=== PATIENT | female | born 1990 | race Caucasian/White ===

== ENCOUNTER → 2020-12-31 | Day surgery (SDC) | payer OTHER ==
[~2020-12-31] MED LIST: IV RINGERS,LACTATED 1000ML 1,000 ML IV ONE; LIDOCAINE 2% PF 5 ML VIAL. ONE; PROPOFOL 10 MG/ML (20ML) VIAL. IV ONE
[2020-12-31 08:45] VITALS: BP 121/68
--- NOTE | 2021-01-02 14:09 | PATHOLOGY ---
[facility] Accession Number: [id number] . 01 Material submitted: . rectum - RECTAL POLYP BIOPSY . 01 Clinical history: . EGD COLONOSCOPY . 02 Diagnosis: Colorectal biopsies, rectal polyps: - Hyperplastic polyps. . ([facility]:mm; 01/02/2021) [facility] 01/02/2021 1201 Local . 02 Comment: There are no adenomatous changes or evidence of malignancy. . ([facility]:mml; 01/02/2021) . 02 Electronically signed: . Marty Goldman MD, Pathologist NPI- [id number] . 01 Gross description: . Received in formalin labeled "Marc, Lucia and Rectal polyp biopsy". Received are 2 smallwood-castro soft tissue fragments ranging from 0.2-0.4 cm. Specimen is entirely submitted in cassette A1.([facility]; 01/01/2021) . J/[facility] 01/01/2021 1602 Local . 02 Pathologist provided ICD-10: K62.1 . 02 CPT . 717081 Specimen Comment: A courtesy copy of this report has been sent to [phone] Specimen Comment: [id number] Specimen Comment: Report sent to / DR CRONIN Performed at: 01 [facility] [address], [place] [id number] MD Magen Reina MD Phone: [phone] Performed at: 02 [facility] [address] [place], [place] [id number] MD Marty Goldman MD Phone: [phone]
== END | disposition home or self-care (01) ==
LOC: ENDOS 06:49
PROVIDERS: ATTEND Internal Medicine Gastroenterology
DX: K92.1 Melena (principal); K29.50 Unspecified chronic gastritis without bleeding; R11.2 Nausea with vomiting, unspecified; R19.4 Change in bowel habit; K64.0 First degree hemorrhoids; K63.89 Other specified diseases of intestine; K62.1 Rectal polyp; Z20.822 Contact with and (suspected) exposure to COVID-19; Z87.891 Personal history of nicotine dependence; Z79.899 Other long term (current) drug therapy; Z98.890 Other specified postprocedural states; Z72.89 Other problems related to lifestyle
CPT/HCPCS: 43235; 45380; 81025; 87426; 88305; J2704

== ENCOUNTER → 2021-01-21 | Outpatient (CLI) | payer OTHER ==
[2020-12-31 08:45] VITALS: BP 121/68
[~2021-01-21] VITALS: Ht 160 cm; Wt 84.4 kg
[~2021-01-21] MED LIST changes: -IV RINGERS,LACTATED 1000ML 1,000 ML IV ONE; -LIDOCAINE 2% PF 5 ML VIAL. ONE; -PROPOFOL 10 MG/ML (20ML) VIAL. IV ONE; +SINCALIDE 1.69 MCG in IV NORMAL SALINE 50ML 30 ML IV ONE
--- NOTE | 2021-01-21 14:39 | RAD ---
HEPATOBILIARY SCAN WITH EJECTION FRACTION History: Reason: BLOATING, VOMITING, LOWER ABDOMEN PAIN FOR 6 MONTHS / Spl. Instructions: / History: COMPARISON: Limited abdominal ultrasound, same day. Procedure: Serial static images are obtained of the liver and biliary system in the frontal projectio n following IV administration of 5.5 mCi of Technetium 99m Choletec. After filling of the gallbladd er, 1.7 mcg of sincalide were infused over 30 minutes and dynamic imaging continued over this period. The gallbladder ejection fraction was calculated. Findings: There is prompt hepatic clearance of tracer from the blood pool. There is homogeneous distribution th roughout the liver. There is normal filling of the gallbladder and normal emptying into the biliary s ystem and small bowel. The gallbladder ejection fraction measures 72% (normal gallbladder EF is 35% o r greater). IMPRESSION: 1. The cystic duct and common bile duct are patent. Negative for acute cholecystitis. 2. The gallbladder ejection fraction is normal. Electronically signed by: Sukhi Acuña MD (01/21/2021 2:37 PM) [id number]
--- NOTE | 2021-01-21 15:05 | RAD ---
Examination: Ultrasound abdomen limited HISTORY: History of abdominal pain, nausea, vomiting COMPARISON: None available. FINDINGS: The liver length measures 16 cm. No evidence of gallstones. The common bile duct measures 3 mm in tra nsverse dimension.The right kidney measures 12.2 x 6.1 x 4.2 cm. The pancreas is not well-visualized due to bowel gas. The visualized aorta, IVC within normal limits of dimension. IMPRESSION: Unremarkable exam. Electronically signed by: Jose Musa MD (01/21/2021 3:02 PM) [id number]
== END ==
LOC: US 10:29
PROVIDERS: ATTEND Internal Medicine Gastroenterology
DX: R11.2 Nausea with vomiting, unspecified (principal); R14.0 Abdominal distension (gaseous)
CPT/HCPCS: 76705; 78227; A9537; J2805

== ENCOUNTER → 2021-02-24 | Outpatient (CLI) | payer OTHER ==
[2020-12-31 08:45] VITALS: BP 121/68
--- NOTE | 2021-02-24 12:44 | RAD ---
EXAM: Nuclear gastric emptying scan. HISTORY: Nausea and vomiting. Early satiety. COMPARISON: None. TECHNIQUE: Serial static images were obtained over the stomach following oral administration of 2 mCi 99m-Tc sulfur colloid. FINDINGS: The stomach empties into the small bowel without evidence of reflux in the area of the esop hagus. Gastric retention percents: 1 hour 52% (normal range 34.8-91%) 2 hour 36% (normal range 2.7-60%) 3 hour 16% (normal range 0.5-28%) 4 hour 0% (normal range 0-10%) The estimated time for half emptying of gastric contents, i.e. 'gastric emptying time' is 70 minutes (normal is 66 +/- 22 minutes). IMPRESSION: Normal gastric emptying scan. Electronically signed by: Pippa Dalton MD (02/24/2021 12:42 PM) [id number]
== END ==
LOC: NM 07:49
PROVIDERS: ATTEND Physician Assistant
DX: R11.10 Vomiting, unspecified (principal)
CPT/HCPCS: 78264; A9541